=== PATIENT | female | born 1990 | race Caucasian/White ===

== ENCOUNTER → 2017-09-24 | Outpatient (CLI) | payer OTHER | END | disposition home or self-care (01) | LOC: LAB EV 15:20 | DX: N39.0 Urinary tract infection, site not specified (principal) | CPT/HCPCS: 87077; 87086; 87186 ==

== ENCOUNTER 2017-10-12 11:50 | Emergency (ER) | payer OTHER ==
[~2017-10-12] VITALS: Ht 152.4 cm; Wt 72.6 kg
== END 2017-10-12 13:27 | disposition home or self-care (01) ==
LOC: ER 11:50
DX: Z32.02 Encounter for pregnancy test, result negative (principal); F17.200 Nicotine dependence, unspecified, uncomplicated
CPT/HCPCS: 36415; 84703; 99283

== ENCOUNTER 2018-10-04 10:51 | Emergency (ER) | payer OTHER ==
[~2018-10-04] VITALS: Ht 152.4 cm; Wt 86.2 kg
== END 2018-10-04 13:50 | disposition home or self-care (01) ==
LOC: ER 10:51
DX: O99.611 Diseases of the digestive system complicating pregnancy, first trimester (principal); K42.9 Umbilical hernia without obstruction or gangrene; O99.331 Smoking (tobacco) complicating pregnancy, first trimester; Z3A.13 13 weeks gestation of pregnancy
CPT/HCPCS: 96361; 96374; 96375; 99283-25; J1170; J2550; J7120

== ENCOUNTER 2019-04-04 12:16 | Inpatient (IN) | payer OTHER ==
[~2019-04-04] VITALS: Ht 160 cm; Wt 87.9 kg
[2019-04-04] MEDS ORDERED: EXPECTA PRENAT1 EACH (12:59)
[2019-04-04] MEDS ORDERED: LEVSOD25 (12:59)
[2019-04-04 13:18] LABS: BASOPHILS ABSOLUTE AUTO 0.09 K/mm3 (0.00-0.23); BASOPHILS PERCENT AUTO 0 % (0-2); EOSINOPHILS ABSOLUTE AUTO 0.02 K/mm3 (0.00-0.68); EOSINOPHILS PERCENT AUTO 0 % (0-6); Hematocrit 35.1 % (33.0-51.0); Hemoglobin 11.5 g/dL (11.5-16.0); IMMATURE GRAN ABSOLUTE AUTO 0.64 K/mm3 (0.00-0.10); IMMATURE GRAN PERCENT AUTO 3 % (0-1); LYMPHOCYTES ABSOLUTE AUTO 2.02 K/mm3 (0.84-5.20); LYMPHOCYTES PERCENT AUTO 8 % (21-46); MONOCYTES ABSOLUTE AUTO 1.07 K/mm3 (0.16-1.47); MONOCYTES PERCENT AUTO 4 % (4-13); Mean Corpuscular HGB 29.3 pg (26.0-34.0); Mean Corpuscular HGB Conc 32.8 g/dL (31.5-36.5); Mean Corpuscular Volume 90 fL (80-100); Mean Platelet Volume 10.8 fL (9.1-12.4); NEUTROPHILS PERCENT AUTO 84 % (41-73); Platelet Count 291 K/mm3 (150-400); RDW Coefficient Variation 14.2 % (11.7-14.2); RDW Standard Deviation 46.1 fL (35.1-46.3); Red Blood Cell Count 3.92 M/mm3 (3.80-5.20); White Blood Cell Count 24.14 K/mm3 (4.00-11.30)
[2019-04-05 05:43] LABS: Hematocrit 30.9 % (33.0-51.0); Hemoglobin 9.8 g/dL (11.5-16.0); Mean Corpuscular HGB 28.6 pg (26.0-34.0); Mean Corpuscular HGB Conc 31.7 g/dL (31.5-36.5); Mean Corpuscular Volume 90 fL (80-100); Mean Platelet Volume 10.7 fL (9.1-12.4); Platelet Count 268 K/mm3 (150-400); RDW Coefficient Variation 14.3 % (11.7-14.2); RDW Standard Deviation 46.4 fL (35.1-46.3); Red Blood Cell Count 3.43 M/mm3 (3.80-5.20); White Blood Cell Count 16.87 K/mm3 (4.00-11.30)
[2019-04-05] MEDS ORDERED: IBU800 MG PO (14:43)
--- NOTE | 2019-04-05 15:17 | NUR ---
DISCHARGE INSTRUCTIONS REVIEWED AND SIGNED. ALL QUESTIONS ANSWERED.
--- NOTE | 2019-04-05 15:55 | NUR ---
BANDS MATCHED. DISCHARGED TO HOME.
== END 2019-04-05 15:50 | disposition home or self-care (01) | DRG 807 ==
LOC: OBS 12:16 → BC 12:17 → OBS 12:28 → BC 12:29
PROVIDERS: ADMIT Advanced Practice Midwife
PROC: 10E0XZZ Delivery of Products of Conception, External Approach (ICD-10-PCS; principal; 2019-04-04)
PROC: 0HQ9XZZ Repair Perineum Skin, External Approach (ICD-10-PCS; 2019-04-04)
PROC: 3E0234Z Introduction of Serum, Toxoid and Vaccine into Muscle, Percutaneous Approach (ICD-10-PCS; 2019-04-05)
DX: O99.334 Smoking (tobacco) complicating childbirth (principal); Z37.0 Single live birth; F17.210 Nicotine dependence, cigarettes, uncomplicated; Z3A.39 39 weeks gestation of pregnancy; O70.0 First degree perineal laceration during delivery; Z23 Encounter for immunization
CPT/HCPCS: 36415; 59025; 81001; 85025; 85027; 86900; 86901; 87086; 87210; 90471; 90707; 99213; A9270; J1885; J2210; J2590; J7120

== ENCOUNTER 2019-04-30 05:03 | Emergency (ER) | payer OTHER ==
[~2019-04-30] VITALS: Ht 160 cm; Wt 72.6 kg
[~2019-04-30 05:03] MED LIST: EXPECTA PRENAT1 EACH; IBU800 MG PO; LEVSOD25
== END 2019-04-30 06:55 | disposition home or self-care (01) ==
LOC: ER 05:03
DX: F41.0 Panic disorder [episodic paroxysmal anxiety] (principal); F43.0 Acute stress reaction; F17.200 Nicotine dependence, unspecified, uncomplicated; Z88.6 Allergy status to analgesic agent; Z88.5 Allergy status to narcotic agent
CPT/HCPCS: 99283

== ENCOUNTER 2022-06-14 03:21 | Inpatient (IN) | payer OTHER ==
[2022-06-14] MEDS ORDERED: CYCLOBENZAPRINE5 MG PO (03:43)
[2022-06-14] MEDS ORDERED: PRENATAL TABLE1 EAC2 PO (03:43)
[2022-06-14 04:03] LABS: BASOPHILS ABSOLUTE AUTO 0.06 K/mm3 (0.00-0.23); BASOPHILS PERCENT AUTO 0 % (0-2); EOSINOPHILS ABSOLUTE AUTO 0.12 K/mm3 (0.00-0.68); EOSINOPHILS PERCENT AUTO 1 % (0-6); Hematocrit 33.9 % (33.0-51.0); Hemoglobin 11.4 g/dL (11.5-16.0); IMMATURE GRAN ABSOLUTE AUTO 0.14 K/mm3 (0.00-0.10); IMMATURE GRAN PERCENT AUTO 1 % (0-1); LYMPHOCYTES PERCENT AUTO 17 % (21-46); MONOCYTES ABSOLUTE AUTO 1.01 K/mm3 (0.16-1.47); MONOCYTES PERCENT AUTO 7 % (4-13); Mean Corpuscular HGB 29.2 pg (26.0-34.0); Mean Corpuscular HGB Conc 33.6 g/dL (31.5-36.5); Mean Corpuscular Volume 87 fL (80-100); Mean Platelet Volume 11.1 fL (9.1-12.4); NEUTROPHILS ABSOLUTE AUTO 10.07 K/mm3 (1.96-9.15); NEUTROPHILS PERCENT AUTO 74 % (41-73); Platelet Count 306 K/mm3 (150-400); RDW Coefficient Variation 14.2 % (11.7-14.2); RDW Standard Deviation 44.7 fL (35.1-46.3); Red Blood Cell Count 3.91 M/mm3 (3.80-5.20)
--- NOTE | 2022-06-14 09:36 | NUR ---
ASSUMED CARE OF PT. PT ALONE IN ROOM REVIEWED SOSCIAL SITUATION WITH PT AND AT THIS TIME SHE DECLINES WANTING TO ADOPT NB OUT. MOM FEEDING AND HOLDING NB APPROPRIATLY. ENCOURAGED MOM TO NOTIFY HER RN OR PILART IF HER FEELINGS CHANGE OR IF SHE NEEDS TO TALK ABOUT HER SOSCIAL SITUATION.
[2022-06-15 07:09] LABS: Hematocrit 30.2 % (33.0-51.0); Mean Corpuscular HGB 28.7 pg (26.0-34.0); Mean Corpuscular HGB Conc 33.1 g/dL (31.5-36.5); Mean Corpuscular Volume 87 fL (80-100); Platelet Count 291 K/mm3 (150-400); RDW Coefficient Variation 14.2 % (11.7-14.2); RDW Standard Deviation 44.3 fL (35.1-46.3); Red Blood Cell Count 3.48 M/mm3 (3.80-5.20); White Blood Cell Count 11.76 K/mm3 (4.00-11.30)
[2022-06-15] MEDS ORDERED: IBUP800 PO (16:01)
--- NOTE | 2022-06-15 17:25 | NUR ---
DISCHARGE INSTRUCTIONS REVIEWED AND SIGNED. BANDS MATCHED. TO BE DISCHARGED TO HOME WITH .
--- NOTE | 2022-06-18 13:32 | NUR ---
[facility] APPOINTMENT 06/18 CALLED PATIENT - SHE FORGOT RESCHEDULED TO 06/21 0800 PER PT REQUEST
== END 2022-06-15 17:20 | disposition home or self-care (01) | DRG 807 ==
LOC: OBS 03:21 → BC 03:21 → OBS 03:32 → BC 03:33
PROVIDERS: ADMIT Registered Nurse Community Health
PROC: 10E0XZZ Delivery of Products of Conception, External Approach (ICD-10-PCS; principal; 2022-06-14)
PROC: 10907ZC Drainage of Amniotic Fluid, Therapeutic from Products of Conception, Via Natural or Artificial Opening (ICD-10-PCS; 2022-06-14)
DX: O48.0 Post-term pregnancy (principal); Z37.0 Single live birth; Z3A.40 40 weeks gestation of pregnancy; Z98.890 Other specified postprocedural states; Z88.0 Allergy status to penicillin; Z79.899 Other long term (current) drug therapy
CPT/HCPCS: 36415; 85025; 85027; 86850; 86900; 86901; 86922; A9270; J1885; J2590; J3010; J3370; J7050; J7120

== ENCOUNTER → 2023-08-29 | Outpatient (CLI) | payer OTHER ==
[~2023-08-29] MED LIST changes: +CYCLOBENZAPRINE5 MG PO; +IBUP800 PO; +PRENATAL TABLE1 EAC2 PO
[2023-09-11 14:10] LABS: HPV GENOTYPE 16 Not Detected; HPV GENOTYPE 18 Not Detected; HPV HIGH RISK Not Detected; HPV SOURCE Cervical
== END | disposition home or self-care (01) ==
LOC: LAB SHORT 14:51 → LAB 14:51
PROVIDERS: Registered Nurse Community Health
DX: Z12.4 Encounter for screening for malignant neoplasm of cervix (principal)
CPT/HCPCS: 87624; G0123

== ENCOUNTER 2025-04-16 08:33 | Day surgery (SDC) | payer OTHER ==
[2025-04-16] VITALS (12 sets, daily range): BP systolic 116–134; BP diastolic 66–92
[~2025-04-16] VITALS: Ht 152.4 cm; Wt 90.1 kg
[~2025-04-16 08:33] MED LIST changes: +ALBU90OI INH; +CeFAZolin Sodium 2,000 MG in NS 100 ML IV SCH
[2025-04-16] MEDS ORDERED: TRAZ100 PO (08:50)
--- NOTE | 2025-04-16 09:15 | NUR ---
History, Chart, Medications and Allergies reviewed before start of procedure. Pre-Op teaching done. Pt verbalizes understanding. Patient confirms NPO status and agrees with scheduled surgery.
--- NOTE | 2025-04-16 09:23 | NUR ---
PT STATES "I'M UNABLE TO PEE AND NOT GETTING UP. DO YOU HAVE SOMETHING I CAN SIGN SINCE I DON'T HAVE TO PEE?" HCG REFUSAL PAPERWORK SIGNED.
[2025-04-16] MEDS ORDERED: FentaNYL Citrate 50 MCG/ML 2 ML Injection ONE ×2 (09:27→11:41)
[2025-04-16] MEDS ORDERED: Rocuronium Bromide 10 MG/ML 5ML Injection IV ONE ×2 (09:27→11:15)
[2025-04-16] MEDS ORDERED: Ondansetron HCl 2 MG / ML 2ML Vial ONE (09:27)
[2025-04-16] MEDS ORDERED: Dexamethasone Sod Phos 10 MG/ML 1ML VIAL ONE (09:27)
[2025-04-16] MEDS ORDERED: Ketorolac Tromethamine 30mg Vial ONE (09:27)
[2025-04-16] MEDS ORDERED: Bupivacaine 0.5% HCl 5 MG/ML 30MLVIAL INJ ONE (09:53)
[2025-04-16] MEDS ORDERED: Ondansetron HCl 2 MG / ML 2ML Vial IV PRN (10:10)
[2025-04-16] MEDS ORDERED: Labetalol HCL 5 MG/ML 4ML Injection (Single Dose) IV PRN (10:10)
[2025-04-16] MEDS ORDERED: FentaNYL Citrate 50 MCG/ML 2 ML Injection IV PRN ×3 (10:10→10:15)
[2025-04-16] MEDS ORDERED: HYDROmorphone HCl/Pf 1MG SYR IV PRN (10:15)
[2025-04-16] MEDS ORDERED: Glycopyrrolate 0.2 MG/ML 5ML VIAL ONE (11:17)
[2025-04-16] MEDS ORDERED: Neostigmine Methylsulfate 5MG/5ML SYR ONE (11:17)
[2025-04-16] MEDS ORDERED: HYDROcodone 5-APAP 325 TAB PO PRN (12:25)
--- NOTE | 2025-04-16 13:00 | NUR ---
Patient up to Ambulate independently. Gait steady. Discharge instructions reviewed with patient. Patient verbalizes understanding. Copy given to patient to take home, WELL MOM. Patient States Post-Procedure ride home has been arranged. Discharged via wheelchair to private car for ride home. PT TOLERATING PO, REPORTS PAIN TOLERABLE. REPORTS READY GO GO HOME.
== END 2025-04-16 13:00 | disposition home or self-care (01) ==
LOC: ORSCMMR 08:33 → ORD 09:45 → ORSCMMR 09:45
PROVIDERS: Surgery
PROC: 8E0W4CZ Robotic Assisted Procedure of Trunk Region, Percutaneous Endoscopic Approach (ICD-10-PCS; principal; 2025-04-16 09:45)
PROC: 0WUF4JZ Supplement Abdominal Wall with Synthetic Substitute, Percutaneous Endoscopic Approach (ICD-10-PCS; principal; 2025-04-16 09:45)
DX: Z87.891 Personal history of nicotine dependence (principal); K43.6 Other and unspecified ventral hernia with obstruction, without gangrene; J45.909 Unspecified asthma, uncomplicated; F41.9 Anxiety disorder, unspecified; F32.A Depression, unspecified; G25.81 Restless legs syndrome; Z79.899 Other long term (current) drug therapy
CPT/HCPCS: A9270; C1781; J0690; J1100; J1885; J2405; J2704; J2710; J3010; J7120